=== PATIENT | male | born 1945 | race Caucasian/White ===

== ENCOUNTER 2016-11-07 08:38 | Emergency (ER) | payer BC ==
[~2016-11-07 08:38] MED LIST: ADDER10 PO; FLOMAX4 PO; FOLIC PO; JANUMET1 TAB PO; MTX2.5 PO; P5 PO; PROZAC PO; PROZAC40 MG PO; STARLIX120 PO; TORATAB PO; VITAMIN B PO; [UNRECOGNIZED DRUG - OTHER] IJ
== END 2016-11-07 10:24 | disposition home or self-care (01) ==
LOC: ER 08:38
DX: S92.001A Unspecified fracture of right calcaneus, initial encounter for closed fracture (principal); K21.9 Gastro-esophageal reflux disease without esophagitis; E11.9 Type 2 diabetes mellitus without complications; Z87.891 Personal history of nicotine dependence; Z79.52 Long term (current) use of systemic steroids; Z79.899 Other long term (current) drug therapy; W19.XXXA Unspecified fall, initial encounter
CPT/HCPCS: 73610-RT; 73630-RT; 96372; 99284; J2405